=== PATIENT | male | born 2000 | race Hispanic/Latino ===

== ENCOUNTER 2023-01-10 06:03 | Emergency (ER) | payer SELFPAY ==
[2023-01-10] MEDS ORDERED: Cyclobenzaprine 10 MG TAB ONE (06:35)
[2023-01-10] MEDS ORDERED: Ibuprofen 200 MG TAB ONE (06:35)
== END 2023-01-10 06:56 | disposition home or self-care (01) ==
LOC: CSHERS 06:03
DX: M54.50 Low back pain, unspecified (principal); E78.00 Pure hypercholesterolemia, unspecified
CPT/HCPCS: 72100